=== PATIENT | female | born 1955 | race Caucasian/White ===

== ENCOUNTER → 2017-01-12 | Outpatient (CLI) | payer OTHER ==
[~2017-01-12] VITALS: Ht 157.5 cm; Wt 65.8 kg
[~2017-01-12] MED LIST: FLAX OIL1000 MG PO; MAGOX 400400 MG PO; MULTIVITAMINS PO; PRILOSEC OTC20 MG PO; VITAMIN D1000 UNI1 PO
--- NOTE | ~2017-01-12 | P ---
[facility] [place] [address] PROCEDURE REPORT Name: AIDEN CASTELAN Room #: REG MAXI Anderson#: [id number] Admission: 01/12/17 Attend Phys: Darryn Thomson Discharge: Date of : 59 Report #: [id number] THIS REPORT FOR: //name// CC: Darryn Osborne DO DATE OF SERVICE: 01/12/2017 PROCEDURE PERFORMED: Upper endoscopy with biopsies and esophageal dilation. HISTORY OF PRESENT ILLNESS: The patient is a 61-year-old female with a history of gastroesophageal reflux disease, previous history of Trotter's, status post ablation last upper endoscopy 2014, biopsies were negative for Trotter's. She has been complaining of intermittent dysphagia. She has had dilations in the past, which have been helpful. She is on Prilosec on a daily basis. PROCEDURE: The risks and benefits of the procedure were explained to the patient, those risks including, but not limited to bleeding, perforation, and the risk of sedation. She understood these risks and gave informed consent. Sedation was given using propofol per anesthesia. Next, using a standard [employer] upper endoscope, the scope was placed in the patient's mouth and advanced under direct vision through the esophagus, stomach and into the second portion of the duodenum. The larynx was normal in appearance. The upper and mid esophagus was normal in appearance. In the distal esophagus, a Schatzki's ring with grade B erosive esophagitis was noted. A small pink mucosal tongue extending above the GE junction approximately 4 mm was seen. Biopsies obtained to rule out the possibility of Trotter's esophagus. Upon entering the stomach, a small hiatal hernia was noted. Overall, the gastric mucosa was normal. The pylorus was normal and patent. The duodenal bulb, first and second portion were all normal. The scope was then brought back up into the patient's stomach and a Savary guidewire was inserted into the stomach, leaving the guidewire in place as the scope was then withdrawn. Next, a 45, followed by a 48 Savary dilation of the esophagus was performed without difficulty. The scope was reintroduced into the patient's stomach. A small mucosal tear was noted at the Schatzki's ring. There was no significant bleeding. At this point, the scope was then withdrawn and the procedure terminated. The patient tolerated the procedure well. IMPRESSION: 1. Grade B erosive esophagitis. 2. Possible short segment Trotter's. 3. Schatzki's ring. 4. Hiatal hernia. 5. Otherwise, normal upper endoscopy. [facility] [address] [place] [address] PROCEDURE REPORT Name: AIDEN CASTELAN Room #: REG MAXI Anderson#: [id number] Admission: 01/12/17 Attend Phys: Darryn Thomson Discharge: Date of : 59 Report #: [id number] RECOMMENDATIONS: 1. Await biopsy results. 2. We would recommend b.iBenid. PPI therapy. 3. Observe the patient post-dilation. Thank you for allowing me to participate in her care. By: [id number] Darryn Batista MD /nt
== END | disposition home or self-care (01) ==
LOC: GI 05:25
DX: K22.2 Esophageal obstruction (principal); K22.10 Ulcer of esophagus without bleeding; K44.9 Diaphragmatic hernia without obstruction or gangrene; Z87.19 Personal history of other diseases of the digestive system; Z87.891 Personal history of nicotine dependence; Z98.890 Other specified postprocedural states; Z79.899 Other long term (current) drug therapy

== ENCOUNTER → 2018-10-09 | Outpatient (CLI) | payer OTHER ==
[~2018-10-09] VITALS: Ht 157.5 cm; Wt 63.5 kg
--- NOTE | 2018-10-10 14:32 | P ---
[facility] [address] [place] [address] PROCEDURE REPORT Name: AIDEN CASTELAN Room #: REG MAXI Anderson#: [id number] Admission: 10/09/18 Attend Phys: Darryn Thomson Discharge: Date of : 59 Report #: [id number] THIS REPORT FOR: //name// CC: Shaila Osborne DO DATE OF SERVICE: 10/09/2018 PROCEDURE PERFORMED: Upper endoscopy with biopsies and esophageal dilation. HISTORY OF PRESENT ILLNESS: The patient is a 62-year-old female with long history of gastroesophageal reflux disease, history of Trotter's esophagus, status post ablation years ago, and also known history of a Schatzki's ring. Last upper endoscopy was in 2016 with dilation for dysphagia, which was helpful. Biopsies at the time of the distal esophagus were negative for Trotter's. The patient takes Prilosec on average 2 times per week. Plan is for upper endoscopy. DESCRIPTION OF PROCEDURE: The risks and benefits of the procedure were explained to the patient, those risks including, but not limited to bleeding, perforation and the risk of sedation. She understood these risks and gave informed consent. Sedation was given using propofol per Anesthesia. Next, using a standard [employer] upper endoscope, the scope was placed in the patient's mouth and advanced under direct vision through the esophagus, stomach and into the second portion of the duodenum. The larynx was normal in appearance. The upper and mid esophagus was normal. In the distal esophagus, a possible short segment of Trotter's was noted. Biopsies obtained. Grade A erosive esophagitis was noted. Also noted was a mild Schatzki's ring. The scope passed without difficulty. Upon entering the stomach, a small hiatal hernia was once again noted. Overall, the gastric mucosa was normal. The pylorus was normal and patent. The duodenal bulb, first and second portion were all normal. The scope was then brought back up into the patient's stomach and a Savary guidewire was inserted through the scope, leaving the guidewire in place as the scope was then withdrawn. Next, a 48-Palestinian Savary dilation of the esophagus was performed without difficulty. The wire and dilator were removed. The scope was reintroduced into the patient's stomach. A small mucosal tear was noted at the Schatzki's ring. No evidence of bleeding. No further dilations were performed. The scope was then withdrawn and the procedure terminated. The patient tolerated the procedure well. IMPRESSION: 1. Schatzki's ring, status post dilation. 2. Possible short segment Trotter's. 3. Grade A erosive esophagitis. [address] [address] PROCEDURE REPORT Name: AIDEN CASTELAN Room #: REG MAXI Anderson#: [id number] Admission: 10/09/18 Attend Phys: Darryn Thomson Discharge: Date of : 59 Report #: [id number] 4. Hiatal hernia. RECOMMENDATIONS: 1. Await biopsy results. 2. Would recommend daily PPI therapy. 3. Observe the patient post-dilation. Thank you for allowing me to participate in her care. <ELECTRONICALLY SIGNED> By: Darryn Batista MD 10/10/18 [id number] Darryn Batista MD /nt
--- NOTE | 2018-10-12 09:07 | PATH ---
[facility] [address] [address] PATHOLOGY RPT PROCEDURE Name: FLIPAIDEN Room #: REG MAXI Ku.#: [id number] Admission: 10/09/18 Date of : 59 Discharge: Report #: [id number] Path Case #: [id number] [facility] Accession Number: [id number] . 01 Material submitted: . esophagus - BIOPSY DISTAL ESOPHAGUS R/O BARRETTS. Modifiers: distal . 01 Clinical history: . Pre-OP DX: Dysphagia, GERD Post-OP DX: Esophagitis, Hx Trotter's, dysphagia, Schatzki's ring . 02 Diagnosis: Esophagus, distal, biopsy: - Squamocolumnar epithelium with moderate acute and chronic inflammation. - No evidence of intestinal metaplasia. (MANUEL:kendal; 10/10/2018) ARELIS/10/10/2018 . 02 Electronically signed: . Huber Wilcox MD, Pathologist NPI- [id number] . 01 Gross description: . Received in formalin labeled "Flip, Aiden, BX distal esophagus, rule out Trotter's," is a single segment of kumar soft tissue measuring 0.5 cm in maximum dimension. The specimen is entirely submitted in cassette A1. (TSD; 10/09/2018) TOB/TOB . 02 Pathologist provided ICD-10: K20.9 . 02 CPT . 105232 Specimen Comment: A courtesy copy of this report has been sent to Specimen Comment: [phone], , . Specimen Comment: Report sent to ,DR CADENA / DR FIELDS Performed at: [address] [id number] MD Jose Carlos Woods MD Phone: [phone] Performed at: [address] [id number] MD Ai Francis MD Phone: [phone]
== END | disposition home or self-care (01) ==
LOC: GI 06:43
DX: K22.2 Esophageal obstruction (principal); K20.9 Esophagitis, unspecified; K44.9 Diaphragmatic hernia without obstruction or gangrene; Z87.891 Personal history of nicotine dependence; Z98.890 Other specified postprocedural states; Z79.899 Other long term (current) drug therapy
CPT/HCPCS: 62110; 62900